=== PATIENT | male | born 1950 | race Caucasian/White ===

== ENCOUNTER → 2016-08-09 | Outpatient (REF) | LOC: ZLAB.WCH 10:16 | DX: Z01.89 Encounter for other specified special examinations (principal) ==

== ENCOUNTER → 2017-08-05 | Outpatient (REF) ==
[2017-08-05 18:53] LABS: PSA-TOTAL 9.23 ng/mL (0-4)
[2017-08-05 19:33] LABS: THYROID STIMULATING HORMONE 2.84 uIU/mL (0.465-4.680)
== END ==
LOC: ZLAB.WCH 18:04
PROVIDERS: Family Medicine
DX: Z01.89 Encounter for other specified special examinations (principal)
CPT/HCPCS: G0103

== ENCOUNTER → 2020-04-07 | Outpatient (REF) | LOC: COL.CARD 14:33 | DX: R00.1 Bradycardia, unspecified (principal); R42 Dizziness and giddiness ==